=== PATIENT | male | born 1970 | race Caucasian/White ===

== ENCOUNTER 2020-05-28 19:53 | Emergency (ER) | payer BC ==
[~2020-05-28 19:53] MED LIST: Iopamidol 370 76% 100 ML VIAL ONE
[2020-05-28] MEDS ORDERED: Morphine 4 MG/ML VIAL ONE (20:17)
[2020-05-28 20:32] LABS: #Basophils 0.1 thou/uL (0.0-0.2); #Eosinphils 0.2 thou/uL (0.0-0.7); #Lymphocytes 2.5 thou/uL (1.20-3.40); #Monocytes 0.6 thou/uL (0.11-0.59); #Neutrophils 3.1 thou/uL (1.40-6.50); %Basophils 1.7 % (0.0-1.0); %Eosinophils 3.1 % (0.0-10.0); %Lymphocytes 38.6 % (21.0-51.0); %Monocytes 9.8 % (0.0-10.0); %Neutrophils 46.8 % (42.0-75.0); Hemoglobin 14.6 g/dL (14.0-18.0); Mean Corpuscular HGB CONC 33.8 g/dL (32.0-36.0); Mean Corpuscular Hemoglobin 31.2 pg (27.0-31.0); Mean Corpuscular Volume 92.3 fL (78.0-98.0); Mean Platelet Volume 7.3 fL (7.4-10.4); Platelet Count 243 thou/uL (130-400); RBC Distribution Width 11.6 % (11.5-14.5); Red Blood Cell (RBC) Count 4.67 mill/uL (4.70-6.10); White Blood Cell (WBC) Count 6.5 thou/uL (4.8-10.8)
[2020-05-28 20:36] LABS: INR-International Normal Ratio 0.9; PTT 26.8 sec (22.9-36.1); Prothrombin Time 11.9 sec (12.0-14.7)
[2020-05-28 20:43] LABS: Anion Gap 18 mmol/L (10-20); BUN (Urea Nitrogen) 8 mg/dL (8.4-25.7); Calc. Creatinine Clearance 0 mL/min (70-130); Calcium 9.3 mg/dL (7.8-10.44); Carbon Dioxide 23 mmol/L (22-29); Chloride 105 mmol/L (98-107); Estimated GFR-MDRD Greater than 90; Glucose 88 mg/dL (70-105); Potassium 3.5 mmol/L (3.5-5.1); Sodium 142 mmol/L (136-145)
[2020-05-28] MEDS ORDERED: Cephalexin 500 MG CAP ONE (21:02)
[2020-05-28] MEDS ORDERED: Ketorolac Tromethamine 30 MG/ML VIAL ONE (21:09)
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
== END 2020-05-28 21:30 | disposition home or self-care (01) ==
LOC: MADERS 19:53
DX: S71.101A Unspecified open wound, right thigh, initial encounter (principal); K21.9 Gastro-esophageal reflux disease without esophagitis; F17.210 Nicotine dependence, cigarettes, uncomplicated; Z79.899 Other long term (current) drug therapy; W34.09XA Accidental discharge from other specified firearms, initial encounter
CPT/HCPCS: 80048; 85025; 85610; 85730; 96374; 96375; J1885; J2270; Q9967

== ENCOUNTER 2022-07-07 21:11 | Emergency (ER) | payer BC ==
[2022-07-07] MEDS ORDERED: Lidocaine 1%/Epinephrine 1:100K 10 ML VIAL ONE (21:22)
[2022-07-07] MEDS ORDERED: Bacitracin 1 PK ONE (21:50)
== END 2022-07-07 22:16 | disposition home or self-care (01) ==
LOC: MADERS 21:11
DX: S81.811A Laceration without foreign body, right lower leg, initial encounter (principal); J45.909 Unspecified asthma, uncomplicated; F17.210 Nicotine dependence, cigarettes, uncomplicated; F17.220 Nicotine dependence, chewing tobacco, uncomplicated; Z79.899 Other long term (current) drug therapy; W26.0XXA Contact with knife, initial encounter
CPT/HCPCS: 12034

== ENCOUNTER 2025-09-27 00:56 | Emergency (ER) | payer BC | END 2025-09-27 02:05 | disposition home or self-care (01) | LOC: MADERS 00:56 | DX: S62.366A Nondisplaced fracture of neck of fifth metacarpal bone, right hand, initial encounter for closed fracture (principal); S62.360A Nondisplaced fracture of neck of second metacarpal bone, right hand, initial encounter for closed fracture; J44.89 Other specified chronic obstructive pulmonary disease; K21.9 Gastro-esophageal reflux disease without esophagitis; F17.210 Nicotine dependence, cigarettes, uncomplicated; F17.220 Nicotine dependence, chewing tobacco, uncomplicated; Z79.899 Other long term (current) drug therapy; Z55.6 Problems related to health literacy; Z79.51 Long term (current) use of inhaled steroids; W22.8XXA Striking against or struck by other objects, initial encounter | CPT/HCPCS: 29125; 99283 ==